=== PATIENT | female | born 1980 | race Caucasian/White ===

== ENCOUNTER 2018-02-05 15:58 | Outpatient (CLI) | payer OTHER ==
[2015-06-06 22:11] VITALS: BP 164/73
[2018-02-05 17:05] LABS: BASOPHILS % 0.4 (0.0-1.5); MEAN CORPUSCULAR HEMOGLOBIN 27.5 pg (28.0-34.0); MONOCYTES % 4.6 % (0.0-11.0); NEUTROPHILS # 6.9 # k/uL (1.4-7.7)
[2018-02-05 17:08] LABS: eGFR (Non-African) > 60
--- NOTE | 2018-02-05 21:31 | Diagnostic Imaging Report ---
MICHELLE PARRISH [facility] [id number] [facility] [address] [place], [place]. [address] Report Submission Date: Feb 05, 2018 6:11:32 PM DIRECTOR OF GRANTS Patient Study Name: NATHAN JORDAN Date: Feb 05, 2018 5:29:07 PM DIRECTOR OF GRANTS Modality Type: CT\SR Gender: F Description: CT ABD PELVIS W/ CON : 76 Institution: [facility] Physician: MICHELLE PARRISH CT abdomen and pelvis with contrast CLINICAL HISTORY: 37/F CT ABD/PEL W/ CON - PT STATES LOWER ABDOMINAL PAIN, NAUSEA, AND UNABLE TO EAT FOR THE PAST 36 HOURS (Hx) / ITS.REASON Very tender lower abdominal pain, nausea, chills (DICOM Hx) TECHNIQUE: 5 mm contiguous axial images of the abdomen and pelvis with IV contrast. With; 95 CC OMNIPAQUE FINDINGS: The liver, pancreas and spleen are normal in appearance. The gallbladder is unremarkable. The kidneys are unremarkable apart from a likely tiny right renal calculus. The aorta is normal in caliber. The small bowel is nondistended. There is no evidence of free air or free fluid. There is mural thickening and pericolic fat stranding of the proximal sigmoid colon compatible acute sigmoid diverticulitis. There is no pericolonic abscess. There is a rim enhancing lesion in the left ovary measuring 1 cm which is likely a left corpus luteum cyst. No destructive osseous lesions. IMPRESSION: Proximal sigmoid colon acute diverticulitis. Electronically signed on Feb 05, 2018 6:11:32 PM DIRECTOR OF GRANTS by: Mayito OQUENDO
== END 2018-02-05 16:00 ==
LOC: RAD 15:58
PROVIDERS: ATTEND Physician Assistant
DX: K57.32 Diverticulitis of large intestine without perforation or abscess without bleeding (principal); R10.30 Lower abdominal pain, unspecified; R11.0 Nausea
CPT/HCPCS: 36415; 74177; 80053; 85025; Q9967